=== PATIENT | female | born 1995 | race Two or more races ===

== ENCOUNTER → 2019-10-16 | Emergency (ER) | payer MEDICAID, OTHER ==
[~2019-10-16] VITALS: Ht 167.6 cm; Wt 83.5 kg
[2019-10-17] VITALS: BP 100/48
[2019-10-17 01:25] LABS: Basophils # (auto) 0 10 ^3/uL (0-0.2); Basophils % (auto) 0.3 % (0.0-2.0); Eosinophils # (auto) 0.1 10 ^3/uL (0-0.8); Eosinophils % (auto) 1.2 % (0.0-7.0); Hematocrit 35.7 % (36.0-46.0); Lymphocytes # (auto) 2.2 10 ^3/uL (0.4-5.4); Lymphocytes % (auto) 32.2 % (10.0-50.0); Mean Corpuscular Hemoglobin 21.4 pg (28.0-32.0); Mean Corpuscular Hgb Conc. 30.7 g/dL (32.0-36.0); Mean Corpuscular Volume 69.6 fL (80.0-100.0); Monocytes # (auto) 0.4 10 ^3/uL (0-1.3); Monocytes % (auto) 5.4 % (0.0-12.0); Neutrophils # (auto) 4.1 10 ^3/uL (1.6-8.6); Neutrophils % (auto) 60.9 % (37.0-80.0); Nucleated Red Blood Cells % 0.1 %; Platelet Count (auto) 289 10^3/uL (140-450); Red Blood Cells 5.12 10^6/uL (4.0-5.20); Red Cell Distribution Width 18.8 % (11.8-14.3); White Blood Cell 6.8 10^3/uL (4.4-10.8)
[2019-10-17 01:39] LABS: Albumin 3.6 g/dL (3.4-5.0); Anion Gap 4 (5-15); BUN/Creatinine Ratio 18.8; Blood Alcohol < 3.0 mg/dL (0-5); Blood Urea Nitrogen 13 mg/dL (7-18); Calcium 8.7 mg/dL (8.5-10.1); Carbon Dioxide 26 mmol/L (21-32); Chloride 107 mmol/L (98-107); GFR African American 137 mL/min; GFR Non-African American 113 mL/min; Glucose 107 mg/dL (74-106); Potassium 3.8 mmol/L (3.5-5.1); Sodium 137 mmol/L (136-145)
[2019-10-17 01:41] LABS: Salicylate < 1.7 mg/dL (2.8-20.0)
[2019-10-17 01:42] LABS: Alanine Aminotransferase 42 U/L (13-56); Alkaline Phosphatase 97 U/L (45-117); Aspartate Aminotransferase 34 U/L (15-37); Bilirubin, Total 0.4 mg/dL (0.2-1.0); Total Protein 7.8 g/dL (6.4-8.2)
[2019-10-17 01:45] LABS: Acetaminophen < 2.0 ug/mL (10-30)
[2019-10-17 01:59] LABS: Urine Bacteria NONE SEEN /hpf (None Seen); Urine Blood 3+ /uL (Negative); Urine Mucus FEW (None Seen); Urine Specific Gravity 1.024 (1.001-1.035); Urine WBC 24 /hpf (0 - 5)
[2019-10-17 02:07] LABS: Alcohol, Urine < 3.0 mg/dL (0-5); Amphetamine Screen, Urine POSITIVE (NEGATIVE); Barbiturate Scree,Urine NEGATIVE (NEGATIVE); Benzodiazephine Screen, Urine NEGATIVE (NEGATIVE); Cannabinoid Screen, Urine NEGATIVE (NEGATIVE); Cocaine Screen, Urine NEGATIVE (NEGATIVE); Opiate Scree,Urine NEGATIVE (NEGATIVE); Phencyclidine Screen, Urine NEGATIVE (NEGATIVE)
== END | disposition home or self-care (01) ==
LOC: ER 23:44
DX: F15.10 Other stimulant abuse, uncomplicated (principal); F12.10 Cannabis abuse, uncomplicated
CPT/HCPCS: 36415; 80053; 80307; 80320; 80329; 81001; 85025

== ENCOUNTER 2019-10-22 23:44 | Emergency (ER) | payer MEDICAID ==
[~2019-10-22] VITALS: Ht 162.6 cm; Wt 81.6 kg
[2019-10-23 02:08] VITALS: BP 111/64
[2019-10-23] MEDS ORDERED: METHOCARBAMOL 500 MG TAB PO ONE (02:15)
[2019-10-23] MEDS ORDERED: methylPREDNISolone SOD SUCC 125 MG/2 ML VL IM ONE (02:15)
[2019-10-23] MEDS ORDERED: KETOROLAC TROMETH 60MG/2ML VIAL IM ONE (02:15)
[2019-10-23] MEDS ORDERED: IBUPROFEN 800 MG TAB PO ONE (02:30)
== END 2019-10-23 02:32 | disposition home or self-care (01) ==
LOC: ER 23:46
DX: J02.9 Acute pharyngitis, unspecified (principal)

== ENCOUNTER 2019-12-13 15:14 | Emergency (ER) | payer MEDICAID ==
[~2019-12-13] VITALS: Ht 162.6 cm; Wt 86.2 kg
[2019-12-13 15:53] VITALS: BP 111/58
[2019-12-13] MEDS ORDERED: cefTRIAXone SOD 1,000 MG VL IM ONE (17:15)
== END 2019-12-13 17:45 | disposition home or self-care (01) ==
LOC: ER 15:14
DX: T81.49XA Infection following a procedure, other surgical site, initial encounter (principal); B99.8 Other infectious disease; F17.210 Nicotine dependence, cigarettes, uncomplicated
CPT/HCPCS: 96372; 99283; J0696